=== PATIENT | male | born 1990 | race Caucasian/White ===

== ENCOUNTER 2022-03-17 08:25 | Emergency (ER) | payer OTHER ==
[~2022-03-17] VITALS: Ht 175.3 cm; Wt 79.4 kg
[2022-03-17] MEDS ORDERED: CETIRIZINE HCL10 MG PO (12:20)
[2022-03-17] MEDS ORDERED: MEDROLPACK PO (12:20)
[2022-03-17] MEDS ORDERED: MUCINEX DM ER1 EAC1 PO (12:20)
[2022-03-17] MEDS ORDERED: FLONASE ALLERG9.9 ML NASAL (12:20)
== END 2022-03-17 12:43 ==
LOC: ER 08:25
DX: U07.1 COVID-19 (principal)